=== PATIENT | male | born 1940 | race Caucasian/White ===

== ENCOUNTER → 2022-09-08 08:42 | Outpatient (CLI) | payer OTHER, SELFPAY | PROVIDERS: Visit Provider Specialist | DX: N40.1 Benign prostatic hyperplasia with lower urinary tract symptoms (principal); N13.8 Other obstructive and reflux uropathy; R31.9 Hematuria, unspecified; Z85.51 Personal history of malignant neoplasm of bladder | CPT/HCPCS: 51798; 81002; 87077; 87086; 87186; 99215 ==

== ENCOUNTER → 2024-02-08 14:20 | Outpatient (CLI) | payer OTHER, SELFPAY | PROVIDERS: PCP Family Medicine; Visit Provider Urology | DX: N13.8 Other obstructive and reflux uropathy (principal); N40.1 Benign prostatic hyperplasia with lower urinary tract symptoms; Z87.440 Personal history of urinary (tract) infections | CPT/HCPCS: 87086 ==

== ENCOUNTER → 2024-05-07 13:35 | Outpatient (CLI) | payer OTHER, SELFPAY | PROVIDERS: PCP Family Medicine; Visit Provider Urology | DX: N40.1 Benign prostatic hyperplasia with lower urinary tract symptoms (principal); N13.8 Other obstructive and reflux uropathy; Z87.440 Personal history of urinary (tract) infections | CPT/HCPCS: 87086; 99214 ==

== ENCOUNTER 2024-05-13 10:38 | Day surgery (SDC) | payer OTHER, SELFPAY ==
[2024-05-08 14:36] VITALS: BMI 32.3
[2024-05-09 14:44] VITALS: BMI 32.3
[2024-05-13] VITALS (9 sets, daily range): BP systolic 105–123; BP diastolic 48–70; PULSE 62–82; RESP 10–19; TEMP 35.9–36.6; O2SAT 88–95; BMI 32.3
--- NOTE | 2024-05-13 | PATH_ITS ---
[facility] Accession Number: [id number] No. of containers..01 Tissue . 01 Material submitted: . bladder - BLADDER MASS . 01 Diagnosis: URINARY BLADDER MASS, BIOPSY: Urothelial mucosa with mild chronic inflammation and focal features most consistent with low-grade papillary carcinoma, please see microscopic description. Negative for in situ or invasive carcinoma. Muscularis propria is not present. MRV 05/16/2024 1555 Local . 01 Electronically signed: . Ashley Engel MD, Pathologist NPI- [id number] . 01 Gross description: . Received in formalin with two patient identifiers and bladder mass, consists of a 0.2 cm in greatest dimension cross-brown soft tissue, which is entirely submitted in cassette A1. ([id number]) /MRV 05/14/20242026 Local . 01 Microscopic: . Microscopic examination of the bladder mass reveals mildly inflamed urothelial mucosa with focal papillary urothelial proliferation with mild cytologic atypia and rare scattered mitotic figures present. 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 . Initial and deeper levels examined. . As part of ongoing water quality control engineer, this case is also reviewed by Dr. Ellyn Nieves, who agrees with the interpretation. . 01 Pathologist provided ICD-10: Z85.51, C67.9 . 01 CPT . 377396 Specimen Comment: A courtesy copy of this report has been sent to [facility] Performed at: [address] [address], [place], [place] [id number] MD Amandeep Burgess MD Phone: [phone]
[2024-05-13] MEDS: LACTATED RINGERS 1,000 ML 21 ML IV (11:27)
--- NOTE | 2024-05-13 12:27 | PM.PREOP ---
Pre-operative Note COVID-19 COVID-19 status: Not tested Interval Note History & Physical reviewed/Exam performed by Physician: Yes Changes to H&P: No
[2024-05-13] MEDS: CEFAZOLIN 2 GM/100 ML PREMIX 100 ML IV (13:02)
--- NOTE | 2024-05-13 13:07 | SUR.OPER ---
Lithotomy on padded OR bed, head on pillow, arms secured on padded arm boards at <90 degrees abduction. Legs secured in padded yellow fins stirrups.
--- NOTE | 2024-05-13 13:40 | P.OP_ITS ---
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 Surgeon: Chinmay Draper Click Yes if Unassisted: Yes Anesthesia Type: General Operative Notes Findings: 1cm papillary lesion immediately medial to his right ureteral orifice Specimen(s): other (bladder mass) Applied: catheter Estimated Blood Loss (mL): 2 Blood products transfused: none Procedure in detail: Patient was identified in the preoperative holding area and consent confirmed. He was then brought to the operating room where general anesthesia was induced. He was then placed in the low lithotomy position. He was then prepped and draped in the usual sterile fashion. A surgical timeout was conducted and all were in agreement. Access to the bladder was obtained via a 21Fr cystoscope. Complete cystoscopy was then performed using a 30 and 70 degree lens. Of note, he was found to have a 14cm thin bulbar urethral stricture that was easily traversed with moderate pressure on the cystoscope. A 1cm papillary mass was noted immediately medial to his right ureteral orifice. Bilateral ureteral orifices were visualized and noted to be orthotopic in nature. No other concerning lesions were appreciated. The cystoscope was then removed and his urethral meatus was serially dilated using Costilla sounds from 22Fr to 30Fr. The 26Fr resectoscope with visual obturator was then advanced through his urethra and into his bladder. The working element with Gyrus loop was then assembled and passed through the resectoscope and into the bladder. The mass was then resected to its base. The resection bed was then fulgurated. The right ureteral orifice was left intact throughout the procedure and clear efflux was appreciated at case end. All bladder specimens were then manually evacuated from the bladder using the resectoscope. Hemostasis was evaluated and noted to be excellent at case end. A 0.035 sensor tip ureteral guidewire was then advanced through the resectoscope and into the bladder and the resectoscope was removed. A 20Fr [place] tip catheter was then advanced over the guidewire and into his bladder. 10cc of sterile water was utilized for balloon insufflation and the ureteral guidewire was removed. Anesthesia was reversed, he was extubated in the OR and transferred to the PACU in stable condition for recovery. Complications: none Post-operative Condition: stable Disposition: PACU Plan for aftercare: Discharge home from PACU with vaughn catheter in place. Will return to Urology clinic on 16 May 2024 to have his catheter removed.
[2024-05-13] MEDS: HYDROMORPHONE 1 MG INJ IV (13:48)
[2024-05-13] MEDS: OXYCODONE IR 5 MG TABLET PO (13:48)
[2024-05-13] MEDS: ALBUTEROL/IPRATROPIUM 3 ML AMPUL INH (14:52)
--- NOTE | 2024-05-13 15:05 | SUR.PHASEII ---
O2 sat 88% on RA at rest. Dropped to 72% after patient dressed himself and then increased to upper 80s with rest. Dr. Gtz notified. Duoneb ordered and given. Post neb O2 sats 88-93%/ Dr. Gtz notified. VVO patient may discharge. Patient reported his baseline O2 is in the 70s at home. Denied shortness of breath.
== END 2024-05-13 15:00 | disposition home or self-care (01) ==
PROVIDERS: PCP Family Medicine; Referring Provider Urology; Visit Provider Urology
PROC: 0TBB8ZZ Excision of Bladder, Via Natural or Artificial Opening Endoscopic (ICD-10-PCS; CPT 52234; principal; 2024-05-13 12:15)
DX: C67.9 Malignant neoplasm of bladder, unspecified (principal); N40.1 Benign prostatic hyperplasia with lower urinary tract symptoms; R39.15 Urgency of urination; R35.0 Frequency of micturition; R35.1 Nocturia; Z85.51 Personal history of malignant neoplasm of bladder; Z87.440 Personal history of urinary (tract) infections; Z87.891 Personal history of nicotine dependence
CPT/HCPCS: 52234; 82962; J0690; J1100; J1171; J2405; J2704; J3010